=== PATIENT | female | born 1970 ===

== ENCOUNTER 2021-10-02 06:27 | Day surgery (SDC) | payer OTHER ==
[~2021-10-02 06:27] MED LIST: ATACAND HCT 321 EAC1 PO; CRESTOR20 MG PO; JARDIANCE25 MG PO; SYNTHROID137 MCG PO; TRINTELLIX10 MG PO
[2021-10-02] MEDS ORDERED: ULTRACET PO (09:50)
[2021-10-02] MEDS ORDERED: MACROBID 100 M100 MG PO (09:50)
== END 2021-10-02 14:00 | disposition home or self-care (01) ==
LOC: CIR.AMB 06:27
PROVIDERS: ATTEND Obstetrics & Gynecology Gynecology
DX: N39.3 Stress incontinence (female) (male) (principal); Z20.822 Contact with and (suspected) exposure to COVID-19
CPT/HCPCS: 57288; C1771